=== PATIENT | female | born 1955 | race Two or more races ===

== ENCOUNTER 2020-05-26 20:20 | Inpatient (IN) | payer MEDICAID ==
[~2020-05-26] VITALS: Ht 154.9 cm; Wt 52.2 kg
[2020-05-26 22:22] LABS: Basophils # (auto) 0.1 10 ^3/uL (0-0.2); Basophils % (auto) 0.5 % (0.0-2.0); Eosinophils # (auto) 0.1 10 ^3/uL (0-0.8); Eosinophils % (auto) 0.9 % (0.0-7.0); Hematocrit 44.2 % (36.0-46.0); Hemoglobin 14.9 g/dL (12.2-16.2); Lymphocytes # (auto) 3.1 10 ^3/uL (0.4-5.4); Lymphocytes % (auto) 27.4 % (10.0-50.0); Mean Corpuscular Hemoglobin 29.8 pg (28.0-32.0); Mean Corpuscular Hgb Conc. 33.8 g/dL (32.0-36.0); Mean Corpuscular Volume 88.3 fL (80.0-100.0); Monocytes # (auto) 0.7 10 ^3/uL (0-1.3); Monocytes % (auto) 6.4 % (0.0-12.0); Neutrophils # (auto) 7.2 10 ^3/uL (1.6-8.6); Neutrophils % (auto) 64.8 % (37.0-80.0); Nucleated Red Blood Cells % 0.3 %; Platelet Count (auto) 273 10^3/uL (140-450); White Blood Cell 11.2 10^3/uL (4.4-10.8)
[2020-05-26 22:42] LABS: Albumin 3.8 g/dL (3.4-5.0); Calcium 9.8 mg/dL (8.5-10.1); Magnesium 2.4 mg/dL (1.6-2.6); Potassium 3.9 mmol/L (3.5-5.1)
[2020-05-26 22:45] LABS: INR 0.99 (0.9-1.15)
[2020-05-26 22:47] LABS: Urine Bacteria NONE SEEN /hpf (None Seen); Urine Blood Negative /uL (Negative); Urine WBC 4 /hpf (0 - 5)
[2020-05-26 22:50] LABS: BUN/Creatinine Ratio 15.2; Bilirubin, Total 0.4 mg/dL (0.2-1.0); Total Protein 8.1 g/dL (6.4-8.2)
[2020-05-26] MEDS ORDERED: SODIUM CHLORIDE 0.9% 1,000 ML IV ONE (23:45)
[2020-05-27] MEDS ORDERED: InsuLIN REG 1unit/0.01ml Soln (100units/ml) IV ONE (00:30)
[2020-05-27] MEDS ORDERED: SODIUM CHLORIDE 0.9% 1,000 ML IV ONE (00:45)
[2020-05-27] MEDS ORDERED: IOHEXOL 300 MG/ML 100ML BOTTLE IJ ONE (01:04)
[2020-05-27] MEDS ORDERED: ACETAMINOPHEN 325 MG TAB PO PRN (04:30)
[2020-05-27] MEDS ORDERED: NITROGLYCERIN 0.4 MG SL TAB SL PRN (04:30)
[2020-05-27] MEDS ORDERED: MORPHINE SULF INJ 2 MG/ML SYRINGE 1ML IV PRN (04:30)
[2020-05-27] MEDS ORDERED: ONDANSETRON HCL 4 MG/2 ML VIAL IV PRN (04:30)
[2020-05-27] MEDS ORDERED: DEXTROSE (50%) 50ML SYRG IV PRN ×2 (04:30→12:00)
[2020-05-27] MEDS ORDERED: DOCUSATE SOD 100 MG CAP PO PRN (04:30)
[2020-05-27] MEDS ORDERED: MORPHINE SULFATE 4 MG/ML SYR/VIAL IV PRN (04:30)
[2020-05-27] MEDS ORDERED: HYDROcodone-ACET 5/325MG TAB PO PRN (04:30)
[2020-05-27] MEDS: SODIUM CHLORIDE 0.9% 1,000 ML IV SCH ×2 (05:40→22:09)
[2020-05-27] MEDS ORDERED: InsuLIN REG 1unit/0.01ml Soln (100units/ml) SC SCH (06:00)
[2020-05-27] MEDS ORDERED: ACCU-CHEK COMFORT CURVE STRIP VI SCH (06:00)
[2020-05-27] MEDS: INSULIN LANTUS (GLARGINE) 1 /0.01ml (100units/ml) SC SCH ×2 (06:38→22:35)
[2020-05-27] MEDS ORDERED: InsuLIN REG 1unit/0.01ml Soln (100units/ml) ONE (06:42)
[2020-05-27] MEDS ORDERED: INSULIN LANTUS (GLARGINE) 1 /0.01ml (100units/ml) SC ONE (06:44)
[2020-05-27 08:00] VITALS: BP 106/66
[2020-05-27 09:00] VITALS: BP 106/66
[2020-05-27] MEDS ORDERED: cefTRIAXone 1GM/50ML D5W 50 ML IV SCH (09:00)
[2020-05-27] MEDS: MULTIPLE VITAMIN TAB PO SCH (10:00)
[2020-05-27] MEDS: FAMOTIDINE 20 MG TAB PO SCH ×2 (10:00→22:09)
[2020-05-27] MEDS ORDERED: ENOXAPARIN SOD 30 MG/0.3 ML SYRINGE SC SCH (10:00)
[2020-05-27] MEDS ORDERED: ASCORBIC ACID 500 MG TAB PO SCH (10:00)
[2020-05-27] MEDS: ZINC SULFATE 220mg CAP or TAB PO SCH (10:00)
[2020-05-27 12:13] LABS: Basophils # (auto) 0.1 10 ^3/uL (0-0.2); Basophils % (auto) 0.5 % (0.0-2.0); Eosinophils # (auto) 0.1 10 ^3/uL (0-0.8); Hematocrit 40.2 % (36.0-46.0); Hemoglobin 14.1 g/dL (12.2-16.2); Lymphocytes # (auto) 3.4 10 ^3/uL (0.4-5.4); Mean Corpuscular Hemoglobin 30.6 pg (28.0-32.0); Mean Corpuscular Volume 87.4 fL (80.0-100.0); Monocytes # (auto) 0.6 10 ^3/uL (0-1.3); Monocytes % (auto) 6.6 % (0.0-12.0); Neutrophils # (auto) 5.5 10 ^3/uL (1.6-8.6); Neutrophils % (auto) 56.9 % (37.0-80.0); Nucleated Red Blood Cells % 0.1 %; Platelet Count (auto) 267 10^3/uL (140-450); Red Cell Distribution Width 12.5 % (11.8-14.3); White Blood Cell 9.6 10^3/uL (4.4-10.8)
[2020-05-27] MEDS ORDERED: HYDROCORTISONE ACET 25 MG RECTAL SUPP PR ONE (12:15)
[2020-05-27 12:32] LABS: Albumin 3.1 g/dL (3.4-5.0); Calcium 9.1 mg/dL (8.5-10.1); Potassium 3.4 mmol/L (3.5-5.1)
[2020-05-27 12:37] LABS: BUN/Creatinine Ratio 13.5; Bilirubin, Total 0.3 mg/dL (0.2-1.0); Total Protein 6.7 g/dL (6.4-8.2)
[2020-05-27 13:00] VITALS: BP 104/62
[2020-05-27 17:00] VITALS: BP 113/70
[2020-05-27] MEDS: ACCU-CHEK COMFORT CURVE STRIP VI SCH ×2 (17:23→22:09)
[2020-05-27] MEDS: InsuLIN REG 1unit/0.01ml Soln (100units/ml) SC SCH ×2 (17:32→22:00)
[2020-05-27 22:00] VITALS: BP 107/60
[2020-05-27] MEDS: HYDROCORTISONE ACET 25 MG RECTAL SUPP PR SCH (22:09)
[2020-05-28 05:00] VITALS: BP 117/63
[2020-05-28 05:52] LABS: Basophils # (auto) 0 10 ^3/uL (0-0.2); Basophils % (auto) 0.7 % (0.0-2.0); Eosinophils # (auto) 0.1 10 ^3/uL (0-0.8); Hematocrit 40.5 % (36.0-46.0); Hemoglobin 13.9 g/dL (12.2-16.2); Lymphocytes # (auto) 2.3 10 ^3/uL (0.4-5.4); Lymphocytes % (auto) 38.3 % (10.0-50.0); Mean Corpuscular Hemoglobin 30.1 pg (28.0-32.0); Mean Corpuscular Hgb Conc. 34.4 g/dL (32.0-36.0); Mean Corpuscular Volume 87.5 fL (80.0-100.0); Monocytes # (auto) 0.5 10 ^3/uL (0-1.3); Monocytes % (auto) 8.3 % (0.0-12.0); Neutrophils % (auto) 50.7 % (37.0-80.0); Nucleated Red Blood Cells % 0.1 %; Platelet Count (auto) 252 10^3/uL (140-450); Red Blood Cells 4.63 10^6/uL (4.0-5.20); White Blood Cell 5.9 10^3/uL (4.4-10.8)
[2020-05-28 06:07] LABS: Potassium 4.1 mmol/L (3.5-5.1)
[2020-05-28 06:12] LABS: BUN/Creatinine Ratio 8.9; Calcium 9.2 mg/dL (8.5-10.1)
[2020-05-28] MEDS: InsuLIN REG 1unit/0.01ml Soln (100units/ml) SC SCH ×4 (06:48→21:55)
[2020-05-28] MEDS: INSULIN LANTUS (GLARGINE) 1 /0.01ml (100units/ml) SC SCH ×2 (06:48→22:00)
[2020-05-28] MEDS: ACCU-CHEK COMFORT CURVE STRIP VI SCH ×4 (06:48→22:03)
[2020-05-28 09:00] VITALS: BP 111/72
[2020-05-28] MEDS: HYDROCORTISONE ACET 25 MG RECTAL SUPP PR SCH ×2 (09:46→22:03)
[2020-05-28] MEDS: ZINC SULFATE 220mg CAP or TAB PO SCH (09:46)
[2020-05-28] MEDS: FAMOTIDINE 20 MG TAB PO SCH (09:46)
[2020-05-28] MEDS: MULTIPLE VITAMIN TAB PO SCH (09:46)
[2020-05-28 09:49] LABS: INR 1.02 (0.9-1.15)
[2020-05-28] MEDS ORDERED: PROPOFOL 10 MG/ML 20 ML IV ONE (10:44)
[2020-05-28] MEDS ORDERED: metFORMIN HYDROCHLORIDE 500 MG TAB PO ONE (11:30)
[2020-05-28 13:00] VITALS: BP 106/61
[2020-05-28] MEDS: SODIUM CHLORIDE 0.9% 1,000 ML IV SCH (13:29)
[2020-05-28] MEDS: metFORMIN HYDROCHLORIDE 500 MG TAB PO SCH (15:42)
[2020-05-28 17:00] VITALS: BP 113/64
[2020-05-28 21:51] VITALS: BP 90/51
[2020-05-29 04:59] VITALS: BP 101/59
[2020-05-29] MEDS: InsuLIN REG 1unit/0.01ml Soln (100units/ml) SC SCH ×4 (05:43→21:31)
[2020-05-29] MEDS: INSULIN LANTUS (GLARGINE) 1 /0.01ml (100units/ml) SC SCH ×2 (05:57→21:31)
[2020-05-29] MEDS: SODIUM CHLORIDE 0.9% 1,000 ML IV SCH ×2 (05:57→23:23)
[2020-05-29] MEDS: ACCU-CHEK COMFORT CURVE STRIP VI SCH ×4 (05:58→21:28)
[2020-05-29] MEDS: metFORMIN HYDROCHLORIDE 500 MG TAB PO SCH ×2 (07:42→17:18)
[2020-05-29 09:00] VITALS: BP 114/71
[2020-05-29] MEDS: ZINC SULFATE 220mg CAP or TAB PO SCH (09:59)
[2020-05-29] MEDS: FAMOTIDINE 20 MG TAB PO SCH (10:00)
[2020-05-29] MEDS: MULTIPLE VITAMIN TAB PO SCH (10:00)
[2020-05-29] MEDS: HYDROCORTISONE ACET 25 MG RECTAL SUPP PR SCH ×3 (10:00→21:29)
[2020-05-29 13:00] VITALS: BP 115/63
[2020-05-29 17:03] VITALS: BP 140/65
[2020-05-29 22:00] VITALS: BP 116/64
[2020-05-30 05:00] VITALS: BP 97/56
[2020-05-30] MEDS: InsuLIN REG 1unit/0.01ml Soln (100units/ml) SC SCH ×2 (06:24→11:40)
[2020-05-30] MEDS: ACCU-CHEK COMFORT CURVE STRIP VI SCH ×2 (06:24→11:39)
[2020-05-30] MEDS: INSULIN LANTUS (GLARGINE) 1 /0.01ml (100units/ml) SC SCH (06:25)
[2020-05-30] MEDS: MULTIPLE VITAMIN TAB PO SCH (08:24)
[2020-05-30] MEDS: FAMOTIDINE 20 MG TAB PO SCH (08:24)
[2020-05-30] MEDS: HYDROCORTISONE ACET 25 MG RECTAL SUPP PR SCH (08:25)
[2020-05-30] MEDS: ZINC SULFATE 220mg CAP or TAB PO SCH (08:25)
[2020-05-30] MEDS: metFORMIN HYDROCHLORIDE 500 MG TAB PO SCH (08:25)
[2020-05-30 09:00] VITALS: BP 100/61
[2020-05-30 12:33] VITALS: BP 125/74
[2020-05-30 13:00] VITALS: BP 125/74
[2020-05-30] MEDS: SODIUM CHLORIDE 0.9% 1,000 ML IV SCH (15:17)
== END 2020-05-30 15:31 | disposition home or self-care (01) | DRG 254 ==
LOC: ER 20:23 → TELE-EAST 20:24 → ER 05-27 05:19 → EAST 05-29 22:43
PROVIDERS: ADMIT Nurse Practitioner Family; ATTEND Internal Medicine
PROC: 0DJD8ZZ Inspection of Lower Intestinal Tract, Via Natural or Artificial Opening Endoscopic (ICD-10-PCS; principal; 2020-05-28 10:43)
DX: K64.8 Other hemorrhoids (principal); E11.65 Type 2 diabetes mellitus with hyperglycemia; K62.89 Other specified diseases of anus and rectum; N30.90 Cystitis, unspecified without hematuria; D72.829 Elevated white blood cell count, unspecified; K37 Unspecified appendicitis; Z20.822 Contact with and (suspected) exposure to COVID-19; E78.5 Hyperlipidemia, unspecified
CPT/HCPCS: 36415; 74177; 80048; 80053; 80061; 81001; 82962; 83036; 83605; 83735; 85025; 85610; 85730; 86850; 86900; 86901; 87426; 96361; 96374; G0378; J0696; J1815; J2704